=== PATIENT | male | born 1970 | race Caucasian/White ===

== ENCOUNTER 2017-11-03 23:13 | Emergency (ER) | payer BC, OTHER ==
[2017-11-04] MEDS: NS 1,000 ML IV
[2017-11-04] MEDS: MORPHINE 4 MG/ML 1ML VIAL (J2270) IV
[2017-11-04 00:21] LABS: BASO % 0.4 % (0.0-1.0); EOS # 0.1 10^3/uL (0.0-0.50); EOS % 0.6 % (0.0-3.0); HEMOGLOBIN 13.9 g/dl (14.0-18.0); IMMATURE GRANULOCYTE % 0.3 % (0-3.0); LYMPH # 1.9 10^3/uL (1.5-4.5); MEAN CORPUSCULAR HEMOGLOBIN 31.6 pg (27.0-33.0); MEAN CORPUSCULAR HGB CONC 34.8 g/dl (32.0-36.5); MEAN CORPUSCULAR VOLUME 90.9 fl (80.0-96.0); MONO # 0.8 10^3/uL (0.0-0.8); MONO % 8.2 % (0.0-5.0); NEUTROPHILS % 71.5 % (36.0-66.0); PLATELET COUNT, AUTOMATED 170 10^3/uL (150-450); RED CELL DISTRIBUTION WIDTH 11.8 % (11.5-14.5); WHITE BLOOD COUNT 9.7 10^3/uL (4.0-10.0)
[2017-11-04 00:41] LABS: ALBUMIN 3.8 GM/DL (3.2-5.2); ALBUMIN/GLOBULIN RATIO 1.31 (1.00-1.93); ALKALINE PHOSPHATASE 74 U/L (45-117); ALT/SGPT 23 U/L (12-78); ANION GAP 9 MEQ/L (8-16); AST/SGOT 19 U/L (7-37); BILIRUBIN,DIRECT < 0.1 MG/DL (0.0-0.2); BILIRUBIN,TOTAL 0.3 MG/DL (0.2-1.0); BLOOD UREA NITROGEN 16 MG/DL (7-18); CARBON DIOXIDE LEVEL 28 MEQ/L (21-32); CHLORIDE LEVEL 106 MEQ/L (98-107); CREATININE FOR GFR 0.98 MG/DL (0.70-1.30); GLOMERULAR FILTRATION RATE > 60.0 (>60); GLUCOSE, FASTING 149 MG/DL (70-100); LIPASE 161 U/L (73-393); POTASSIUM SERUM 3.8 MEQ/L (3.5-5.1); SODIUM LEVEL 143 MEQ/L (136-145); TOTAL PROTEIN 6.7 GM/DL (6.4-8.2)
== END 2017-11-04 01:20 | disposition home or self-care (01) ==
LOC: M ED 23:13
DX: K52.9 Noninfective gastroenteritis and colitis, unspecified (principal); F17.200 Nicotine dependence, unspecified, uncomplicated; Z79.899 Other long term (current) drug therapy
CPT/HCPCS: J2270

== ENCOUNTER → 2019-01-17 | Outpatient (CLI) | payer BC ==
[~2019-01-17] MED LIST: LEVOTAB10
--- NOTE | 2019-01-17 10:28 | REP ---
SACRUM AND COCCYX: Three views of sacrum and coccyx performed. There is no fracture or dislocation. There is very mild sclerosis along the sacroiliac joints. There are mild degenerative changes of the lower lumbar spine. IMPRESSION: Mild sclerosis at the sacroiliac joints. Mild degenerative changes of the lower lumbar spine. Electronically Signed by Daniel Bai MD 01/22/2019 11:39 A
--- NOTE | 2019-01-17 10:39 | REP ---
LUMBOSACRAL SPINE: Five views of the lumbar sacral spine are performed. There is no compression fracture or malalignment. There is no spondylolysis or spondylolisthesis. There is mild diffuse spurring. There is moderate disc space narrowing at L4-5 with subchondral sclerosis. There also appears to be minor disc space narrowing at L3-4. There is sclerosis at the posterior facet joints particularly at L5-S1. The posterior elements are intact. IMPRESSION: Mild degenerative changes. Electronically Signed by Daniel Bai MD 01/22/2019 11:40 A
== END ==
LOC: M WUC 09:08
PROVIDERS: ATTEND Chiropractor
DX: M51.36 Other intervertebral disc degeneration, lumbar region (principal); M51.37 Other intervertebral disc degeneration, lumbosacral region

== ENCOUNTER → 2020-09-14 | Outpatient (CLI) | payer SELFPAY | LOC: M LABSMTC 12:51 | PROVIDERS: ATTEND Pediatrics | DX: Z20.822 Contact with and (suspected) exposure to COVID-19 (principal) ==

== ENCOUNTER → 2020-10-06 | Outpatient (REF) | payer BC ==
[2020-10-08 10:10] LABS: ANTINUCLEAR ANTIBODIES DIRECT Negative (Negative)
== END ==
LOC: M LAB REF 16:16
PROVIDERS: ATTEND Physician Assistant Medical
DX: G50.1 Atypical facial pain (principal); R51.9 Headache, unspecified

== ENCOUNTER → 2020-11-08 | Outpatient (CLI) | payer BC ==
--- NOTE | 2020-11-08 14:57 | REPVR ---
PROCEDURE INFORMATION: Exam: MR Head Without Contrast Exam date and time: 11/08/2020 12:47 PM Age: 50 years old Clinical indication: Headache and other: RT temporal pain; Migraine; Aura effect not specified; Other: Unknown; Additional info: Atypical facial pain TECHNIQUE: Imaging protocol: MR of the head without contrast. COMPARISON: No relevant prior studies available. FINDINGS: Brain: There is no acute intracranial hemorrhage, cerebral edema, or midline shift. No restricted diffusion is present to suggest acute infarction. Cerebral ventricles: No hydrocephalus. Bones/joints: Unremarkable. Paranasal sinuses: Normal as visualized. No acute sinusitis. Mastoid air cells: Normal as visualized. No mastoid effusion. Orbital cavity: Unremarkable. Soft tissues: Unremarkable. IMPRESSION: No acute findings. Electronically signed by: Octavio Malave On 11/08/2020 14:58:26 PM
== END ==
LOC: M RAD 11:22
PROVIDERS: ATTEND Physician Assistant
DX: G50.1 Atypical facial pain (principal)

== ENCOUNTER → 2020-12-15 | Outpatient (CLI) | payer BC ==
--- NOTE | 2020-12-15 15:22 | REP ---
INDICATION: CHRONIC MAX SINUSITIS. COMPARISON: None. TECHNIQUE: Axial CT images with multiplanar reformations. FINDINGS: The paranasal sinuses are clear. There is a mild leftward nasal septal deviation and nasal spur. Dentition appears unremarkable. IMPRESSION: No evidence of sinusitis. <Electronically signed by Gerardo Stewart > 12/15/20 [id number]
== END ==
LOC: M RAD 15:03
PROVIDERS: ATTEND Otolaryngology
DX: J32.0 Chronic maxillary sinusitis (principal)

== ENCOUNTER → 2021-10-17 | Outpatient (CLI) | payer BC | LOC: M LABSMTC 10:24 | PROVIDERS: ATTEND Anesthesiology | DX: Z01.812 Encounter for preprocedural laboratory examination (principal); Z20.822 Contact with and (suspected) exposure to COVID-19 ==

== ENCOUNTER 2021-10-21 08:55 | Day surgery (SDC) | payer BC ==
[~2021-10-21] VITALS: Ht 185.4 cm; Wt 93.0 kg
[~2021-10-21 08:55] MED LIST changes: +NS 1,000 ML IV ONE
[2021-10-21] MEDS ORDERED: propofoL 200 MG/20 ML VIAL As Ordered ONE (09:34)
[2021-10-21] MEDS ORDERED: LIDOCAINE 2% 100MG/5ML SDV (FOR ANES.) As Ordered ONE (09:34)
[2021-10-21 11:05] VITALS: BP 107/70
== END 2021-10-21 11:20 | disposition home or self-care (01) ==
LOC: M OPP 08:55
PROVIDERS: ATTEND Internal Medicine Gastroenterology
DX: Z12.11 Encounter for screening for malignant neoplasm of colon (principal); Z80.0 Family history of malignant neoplasm of digestive organs; Z80.7 Family history of other malignant neoplasms of lymphoid, hematopoietic and related tissues; K63.5 Polyp of colon; K64.8 Other hemorrhoids; F17.290 Nicotine dependence, other tobacco product, uncomplicated